=== PATIENT | male | born 1970 | race Caucasian/White ===

== ENCOUNTER 2018-10-23 23:44 | Emergency (ER) | payer OTHER ==
[~2018-10-23] VITALS: Ht 170.2 cm; Wt 78.5 kg
[~2018-10-23 23:44] MED LIST: AMOX500C2 PO
[2018-10-23 23:47] VITALS: Ht 170.2 cm; Wt 78.5 kg
[2018-10-24 01:26] VITALS: BP 111/71; PULSE 71; RESP 18
[2018-10-24] MEDS ORDERED: IBUPROFEN 600 MG TAB PO ONE (04:00)
== END 2018-10-24 03:55 | disposition home or self-care (01) ==
LOC: FTE 23:44 → E/R 10-24 03:55
DX: J02.9 Acute pharyngitis, unspecified (principal); K74.60 Unspecified cirrhosis of liver; M79.89 Other specified soft tissue disorders; R07.9 Chest pain, unspecified
CPT/HCPCS: 36415; 71045; 80053; 83690; 83880; 84484; 85025; 85610; 93005; Z7502; Z7610